=== PATIENT | male | born 1975 ===

== ENCOUNTER 2018-03-14 00:11 | Inpatient (IN) | payer OTHER ==
[2018-03-14 00:27] VITALS: BMI 30.9
[2018-03-14] MEDS ORDERED: Sodium Chloride 0.9% 1,000 ML IV STA (00:43)
--- NOTE | 2018-03-14 01:12 | ED PDOC ---
HPI: Abdomen Time Seen by Provider: 03/14/18 00:39 Chief Complaint (Nursing): Abdominal Pain Chief Complaint (Provider): Abdominal Pain History Per: Patient History/Exam Limitations: no limitations Additional Complaint(s): 42 y/o male with PMHx of kidney stones, diagnosed x24 hours ago with the same, presents to ED with left flank pain and testicular pain. Patient reports that he has been taking his medications as prescribed but has been experiencing worsening pain. Patient reports he spoke to Dr. Pena, urologist, who recommended he come to the ED for worsening pain. Past Medical History Reviewed: Historical Data, Nursing Documentation, Vital Signs Vital Signs: Last Vital Signs Temp 97.6 F 03/14/18 00:27 Pulse 82 03/14/18 00:27 Resp 18 03/14/18 00:27 BP 155/76 H 03/14/18 00:27 Pulse Ox 98 03/14/18 00:27 - Medical History PMH: Kidney Stones - Surgical History Surgical History: No Surg Hx - Family History Family History: States: Unknown Family Hx - Social History Current smoker - smoking cessation education provided: No Alcohol: None Drugs: Denies - Immunization History Hx Tetanus Toxoid Vaccination: Yes Hx Influenza Vaccination: No Hx Pneumococcal Vaccination: No - Home Medications Home Medications: Ambulatory Orders Medication Instructions Recorded RX: No Known Home Med 03/14/18 - Allergies Allergies/Adverse Reactions: Allergies Allergy/AdvReac Type Severity Reaction Status Date / Time No Known Allergies Allergy Verified 03/14/18 00:26 Review of Systems ROS Statement: Except As Marked, All Systems Reviewed And Found Negative Gastrointestinal: Positive for: Abdominal Pain (left flank) Genitourinary Male: Positive for: Scrotal Pain (testicular) Physical Exam - Reviewed Nursing Documentation Reviewed: Yes Vital Signs Reviewed: Yes - Physical Exam Appears: Positive for: Uncomfortable Head Exam: Positive for: ATRAUMATIC, NORMOCEPHALIC Skin: Positive for: Normal Color, Warm, Dry Eye Exam: Positive for: EOMI, Normal appearance, PERRL Neck: Positive for: Normal, Painless ROM, Supple Cardiovascular/Chest: Positive for: Regular Rate, Rhythm. Negative for: Murmur Respiratory: Positive for: Normal Breath Sounds. Negative for: Respiratory Distress Gastrointestinal/Abdominal: Positive for: Normal Exam, Soft. Negative for: Tenderness Extremity: Positive for: Normal ROM. Negative for: Pedal Edema, Deformity Neurologic/Psych: Positive for: Alert, Oriented. Negative for: Motor/Sensory Deficits - Laboratory Results Result Diagrams: 03/14/18 01:15 03/14/18 01:15 - ECG O2 Sat by Pulse Oximetry: 98 (RA) Pulse Ox Interpretation: Normal Medical Decision Making Medical Decision Making: Time: 00:42 Initial Impression: 42 y/o male with renal colics Initial Plan: * CT Abd Pelvis * CMP * ED urine * CBC w/ diff * IV Fluids * IV Toradol * Zofran * UA 02:40 CT Abd Pelvis FINDINGS: LUNG BASES: The lung bases appear clear. No pleural effusions are seen. LIVER: Unremarkable. GALLBLADDER AND BILE DUCTS: The gallbladder appears within normal limits. No radioopaque gallstones are seen. No biliary ductal dilatation is evident. PANCREAS: Unremarkable. SPLEEN: Unremarkable. ADRENAL GLANDS: Unremarkable. KIDNEYS, URETERS, AND BLADDER: Two 3 mm calculi are noted at the left UVJ producing mild hydroureteronephrosis. There is perinephric stranding. Punctate non-obstructing calculus is present in the lower pole of the right kidney. STOMACH AND BOWEL: Unremarkable appearance of the stomach and bowel. No evidence of bowel obstruction. No evidence suggesting enteritis or colitis. APPENDIX: No evidence of acute appendicitis on CT examination. PERITONEUM: No free fluid. No free air. LYMPH NODES: No lymphadenopathy is evident. REPRODUCTIVE: Unremarkable as visualized. VASCULATURE: No evidence of abdominal aortic aneurysm. BONES: No aggressive appearing osseous lesion. No acute osseous pathology evident. IMPRESSION: 1. Two 3 mm calculi are noted at the left UVJ producing mild hydroureteronephrosis. There is perinephric stranding. 2. Punctate non-obstructing calculus is present in the lower pole of the right kidney. 05:22 Discussed patient case with Dr. Pena, patient's urologist, who believes patient will benefit from surgical intervention given this is patient's second ER visit in less than 24 hours. Diagnosis is obstructive ureteral calculus with hydronephrosis. Case will be referred to Dr. Nuñez. ------ Scribe Attestation: Documented by Delbert Zhang acting as a scribe for Can Ross MD. Provider Scribe Attestation: All medical record entries made by the Scribe were at my direction and personally dictated by me. I have reviewed the chart and agree that the record accurately reflects my personal performance of the history, physical exam, medical decision making, and the department course for this patient. I have also personally directed, reviewed, and agree with the discharge instructions and disposition Disposition - Clinical Impression Clinical Impression: Renal colic on left side, Ureteral calculus, left, Hydronephrosis Discussed With : Veronica Pena (Dr Nuñez) - Disposition Disposition Time: 05:22 Condition: FAIR
[2018-03-14 01:19] LABS: BASO % 0.3 % (0.0-2.0); EOS % 0.1 % (0.0-4.0); HEMOGLOBIN 13.4 g/dL (12.0-18.0); LYMPH # 1.2 K/uL (1.0-4.3); LYMPH % 9.8 % (20.0-40.0); MEAN CELL VOLUME 90.2 fl (80.0-94.0); MEAN CORPUSCULAR HEMOGLOBIN 29.8 pg (27.0-31.0); MEAN CORPUSCULAR HGB CONC 33.1 g/dL (33.0-37.0); MEAN PLATELET VOLUME 9.7 fl (7.2-11.7); MONO # 1.1 K/uL (0.0-0.8); MONO % 9.2 % (0.0-10.0); NEUT # 9.5 K/uL (1.8-7.0); NEUT % 80.6 % (50.0-75.0); PLATELET COUNT 150 K/uL (130-400); WHITE BLOOD COUNT 11.7 K/uL (4.8-10.8)
[2018-03-14 01:27] LABS: ALB/GLOB RATIO 1.2 (1.0-2.1); ALBUMIN 3.9 g/dL (3.5-5.0); ALT/SGPT 38 U/L (21-72); AST/SGOT 31 U/L (17-59); BLOOD UREA NITROGEN 17 mg/dl (9-20); CALCIUM 9.5 mg/dL (8.4-10.2); GFR NON-AFRICAN AMERICAN 55
[2018-03-14 03:22] LABS: LYMPHOCYTE 6 % (20-50); MONOCYTE 4 % (0-10); NEUTROPHIL 89 % (42-75); REACTIVE LYMPHOCYTES 1 % (0-0); TOTAL CELLS COUNTED 100
[2018-03-14 03:23] LABS: PLATELET ESTIMATE NORMAL (NORMAL)
[2018-03-14 03:24] LABS: ANISOCYTOSIS SLIGHT; HYPOCHROMIC SLIGHT
[2018-03-14 04:33] LABS: SQUAMOUS EPITHIAL 2 /hpf (0-5); URINE BACTERIA RARE (<OCC); URINE BILIRUBIN NEGATIVE (NEGATIVE); URINE BLOOD MODERATE (NEGATIVE); URINE CLARITY SLIGHTY-CLOUDY (Clear); URINE COLOR STRAW (YELLOW); URINE GLUCOSE (UA) NEG (NEGATIVE); URINE LEUKOCYTE ESTERASE NEG Leu/uL (Negative); URINE PROTEIN NEGATIVE (NEGATIVE); URINE UROBILINOGEN 0.2-1.0 mg/dL (0.2-1.0)
[2018-03-14] MEDS ORDERED: Morphine 4 MG/ML VIAL IVP PRN (05:58)
--- NOTE | 2018-03-14 06:11 | CP.PCM.HP ---
History of Present Illness - History of Present Illness History of Present Illness: CC: L flank pain HPI: This is a 42 y/o male with MHx significant for nephrolithiasis in the past who comes in with L sided flank pain. Patient developed that pain about 1 day prior and was diagnosed with nephrolithiasis. His pain has worsened, and there is radiation to testicles. He also has some nausea. No f/c/d. He was Rx'ed medic ations previously and was taking them, however withouth improvement. Since his symptoms were worsening, he spoke with Dr. Pena, his urologist, and was advised to come in for the worsening pain. ROS: 14 systems reviewed, negative other than HPI MHx: Nephrolithiasis SHx: None Allergies: None Medications: Per med rec Family Hx: Per patient, possible kidney stones in family Social Hx: Lives with , no EtOH, no tobacco Present on Admission - Present on Admission Any Indicators Present on Admission: No Past Patient History - Infectious Disease Hx of Infectious Diseases: None - Past Social History Alcohol: None Drugs: Denies - RENAL Hx Kidney Stones: Yes - PSYCHIATRIC Hx Substance Use: No - SURGICAL HISTORY Hx Surgeries: No - ANESTHESIA Hx Anesthesia: No Meds Allergies/Adverse Reactions: Allergies Allergy/AdvReac Type Severity Reaction Status Date / Time No Known Allergies Allergy Verified 03/14/18 00:26 Physical Exam - Constitutional Additional comments: mild distress - Head Exam Head Exam: ATRAUMATIC, NORMOCEPHALIC - Eye Exam Eye Exam: EOMI, PERRL - ENT Exam ENT Exam: Mucous Membranes Moist - Neck Exam Neck exam: Positive for: Full Rom - Respiratory Exam Respiratory Exam: Clear to Auscultation Bilateral, NORMAL BREATHING PATTERN - Cardiovascular Exam Cardiovascular Exam: REGULAR RHYTHM, +S1, +S2 - GI/Abdominal Exam GI & Abdominal Exam: Normal Bowel Sounds, Soft, Tenderness Additional comments: lower abd tenderness on L, ?suprapubic tenderness - Extremities Exam Extremities exam: Positive for: full ROM, normal inspection - Back Exam Back exam: CVA tenderness (L) - Neurological Exam Neurological exam: Alert, CN II-XII Intact, Oriented x3 - Psychiatric Exam Psychiatric exam: Normal Affect, Normal Mood - Skin Skin Exam: Dry, Warm Results - Vital Signs Recent Vital Signs: Last Vital Signs Temp 97.6 F 03/14/18 00:27 Pulse 82 03/14/18 00:27 Resp 18 03/14/18 00:27 BP 155/76 H 03/14/18 00:27 Pulse Ox 98 03/14/18 05:33 - Labs Result Diagrams: 03/14/18 01:15 03/14/18 01:15 Labs: Laboratory Results - last 24 hr 03/14/18 03/14/18 03/14/18 01:15 01:15 04:00 WBC 11.7 H RBC 4.50 Hgb 13.4 Hct 40.6 MCV 90.2 MCH 29.8 MCHC 33.1 RDW 13.0 Plt Count 150 MPV 9.7 Neut % (Auto) 80.6 H Lymph % (Auto) 9.8 L [place] % (Auto) 9.2 Eos % (Auto) 0.1 Baso % (Auto) 0.3 Neut # (Auto) 9.5 H Lymph # (Auto) 1.2 [place] # (Auto) 1.1 H Eos # (Auto) 0.0 Baso # (Auto) 0.0 Neutrophils % (Manual) 89 H Lymphocytes % (Manual) 6 L Reactive Lymphs % 1 H Monocytes % (Manual) 4 Platelet Estimate Normal Hypochromasia (manual) Slight Anisocytosis (manual) Slight Sodium 135 Potassium 3.9 Chloride 101 Carbon Dioxide 24 Anion Gap 14 BUN 17 Creatinine 1.4 Est GFR ( Amer) > 60 Est GFR (Non-Af Amer) 55 Random Glucose 128 H Calcium 9.5 Total Bilirubin 0.6 AST 31 ALT 38 Alkaline Phosphatase 68 Total Protein 7.2 Albumin 3.9 Globulin 3.3 Albumin/Globulin Ratio 1.2 Urine Color Straw Urine Clarity Slighty-cloudy Urine pH 6.0 Ur Specific [place] 1.008 Urine Protein Negative Urine Glucose (UA) Neg Urine Ketones Negative Urine Blood Moderate Urine Nitrate Negative Urine Bilirubin Negative Urine Urobilinogen 0.2-1.0 Ur Leukocyte Esterase Neg Urine RBC (Auto) 33 H Urine Microscopic WBC 2 Ur Squamous Epith Cells 2 Urine Bacteria Rare - Imaging and Cardiology CT scan - abdomen Status: Image reviewed by me, Report reviewed by me Additional comment: IMPRESSION: 1. Two 3 mm calculi are noted at the left UVJ producing mild hydroureteronephrosis. There is perinephric stranding. 2. Punctate non-obstructing calculus is present in the lower pole of the right kidney. Assessment & Plan (1) Nephrolithiasis Assessment and Plan: 42 y/o male presenting with recurrent nephrolithiasis/hydroureter/renal colic. -NPO except medications/IVF for now in case of procedure -IV Zofran for n/v -Pain medications per scale -Flomax 0.8 mg daily -Consult [facility] -SCDs and ambulation for DVT PPx Status: Acute (2) Hydroureter Status: Acute (3) DVT prophylaxis Status: Acute
[2018-03-14] MEDS: Lactated Ringer's 1,000 ML IV SCH ×2 (06:28→14:07)
--- NOTE | 2018-03-14 10:14 | CT ---
Date of service: 03/14/2018 PROCEDURE: CT Abdomen and Pelvis without intravenous contrast HISTORY: renal colic COMPARISON: None. TECHNIQUE: Axial and reformatted coronal and sagittal CT images of the abdomen and pelvis were obtained without IV or oral contrast administration . Contrast dose: 0 Radiation dose: Total exam DLP = 528.72 mGy-cm. This CT exam was performed using one or more of the following dose reduction techniques: Automated exposure control, adjustment of the mA and/or kV according to patient size, and/or use of iterative reconstruction technique. FINDINGS: LOWER THORAX: Unremarkable. LIVER: Unremarkable. No gross lesion or ductal dilatation. GALLBLADDER AND BILE DUCTS: Unremarkable. PANCREAS: Unremarkable. No gross lesion or ductal dilatation. SPLEEN: Unremarkable. ADRENALS: Unremarkable. No mass. KIDNEYS AND URETERS: There is mild the left hydronephrosis and hydroureter up to 7 x 4 millimeter calculus at the left UV junction. There is linear shaped nonobstructing calculus at the lower pole of the right kidney measures 7.5 millimeter in the largest diameter. No evidence of right hydronephrosis. VASCULATURE: Unremarkable. No aortic aneurysm. No aortic atherosclerotic calcification or mural plaque present. BOWEL: Unremarkable. No obstruction. No gross mural thickening. APPENDIX: Unremarkable. Normal appendix. PERITONEUM: Unremarkable. No free fluid. No free air. LYMPH NODES: Unremarkable. No enlarged lymph nodes. BLADDER: Unremarkable. REPRODUCTIVE: The prostate is mildly enlarged contains coarse calcification BONES: No acute fracture. OTHER FINDINGS: None. IMPRESSION: Mild left hydronephrosis and hydroureter up 7 x 4 millimeter calculus at the left UV junction. 7.5 millimeter nonobstructing linear shaped calculus at the lower pole of the right kidney. Preliminary report was submitted by [facility].
[2018-03-14] MEDS ORDERED: cefTRIAXone (Rocephin) 1 gm Inj ONE (13:51)
[2018-03-14] MEDS ORDERED: Midazolam 2 MG/2 ML VIAL ONE (13:52)
[2018-03-14] MEDS ORDERED: Propofol 10 mg/ml Inj (20 ML) ONE (13:52)
[2018-03-14] MEDS ORDERED: Lidocaine 1% 5ml Abboject ONE (13:52)
[2018-03-14] MEDS ORDERED: Lidocaine 2% Jelly (5 ml) TOP ONE (13:53)
[2018-03-14] MEDS ORDERED: Lactated Ringer's 1,000 ML IV ONE ×2 (18:41→19:55)
[2018-03-14] MEDS ORDERED: [UNRECOGNIZED DRUG - OTHER] TP ONE (19:06)
[2018-03-14] MEDS ORDERED: BENZOIN TP ONE (19:06)
[2018-03-14] MEDS ORDERED: Liquid Adhesive TOP ONE ×2 (19:07→19:09)
[2018-03-14] MEDS ORDERED: HYDROmorphone 0.5 mg/0.5 ml ISec IVP PRN (19:18)
[2018-03-14] MEDS ORDERED: Lactated Ringer's 1,000 ML IV SCH (19:30)
--- NOTE | 2018-03-15 05:15 | OP ---
PROCEDURE DATE: 03/14/2018 PREOPERATIVE DIAGNOSIS: Left renal colic secondary to left ureteral obstructing stone. PROCEDURES PERFORMED: Cystoscopy, left ureteroscopy, stone basketing, and J-stent placement. DESCRIPTION OF PROCEDURE: Under general anesthesia, the patient was placed on the operating room table in the dorsal lithotomy position. The area of the groin was draped and prepped in a sterile manner. At this time, using a short urethroscope and under direct vision, I entered into the bladder. Over a floppy-tip guidewire, I advanced the ureteroscope up the left ureter beyond the area of the occlusive stone. At this time, I did a full to the level of the renal pelvis, did not see any other stones, so I came back and used a double-helical basket to engage the stone. It fractured into two, but I got the bigger portion now. The remaining portion was very small. I went back for a second look, and that is where I saw the very small fragment. I am sure it will come out on its own at this point, and under fluoroscopy, I placed 6-Frisian multi-length double J-stent into good position. Once this was done, then the patient was sent from the operating room in good condition. The stone was sent for specimen analysis. Veronica Pena MD
--- NOTE | 2018-03-15 05:21 | CON ---
DATE: 03/14/2018 This is a gentleman, 42 years old, who came in through the ER for acute left renal colic. He had been in a recent emergency room, the day before with the same condition. Apparently discharged from there, came to this ER, found to have an obstructing left ureteral calculus. On CAT scan, the patient was in moderate pain, so he is being admitted. We will give the patient a voiding trial. If he is not able to pass the stone by later this morning, then he will be taken to the operating room for physical removal of this stone. The patient is not febrile at this time. We will cover him with IV antibiotics until such time the stone is successfully out of him. Veronica Pena MD
[2018-03-15 06:30] LABS: BASO % 0.5 % (0.0-2.0); EOS % 0.7 % (0.0-4.0); HEMOGLOBIN 13.1 g/dL (12.0-18.0); LYMPH # 1.1 K/uL (1.0-4.3); LYMPH % 16.2 % (20.0-40.0); MEAN CORPUSCULAR HEMOGLOBIN 30.2 pg (27.0-31.0); MEAN CORPUSCULAR HGB CONC 33.6 g/dL (33.0-37.0); MEAN PLATELET VOLUME 10.3 fl (7.2-11.7); MONO % 14.6 % (0.0-10.0); NEUT # 4.6 K/uL (1.8-7.0); RBC 4.35 Mil/uL (4.40-5.90); RED CELL DISTRIBUTION WIDTH 12.9 % (11.5-14.5); WHITE BLOOD COUNT 6.7 K/uL (4.8-10.8)
[2018-03-15 06:35] LABS: BLOOD UREA NITROGEN 16 mg/dl (9-20); CALCIUM 8.7 mg/dL (8.4-10.2); GFR NON-AFRICAN AMERICAN > 60
[2018-03-15 08:00] VITALS: BP 126/69; PULSE 70; RESP 16; TEMP 99.3; O2SAT 99
--- NOTE | 2018-03-15 11:26 | RAD ---
Date of service: 03/14/2018 PROCEDURE: Intraoperative Fluoroscopy. HISTORY: FLUOROSCOPY FINDINGS: Fluoroscopic assistance was provided for retrograde study and left stent placement. Please refer to the operative report from [facility].
--- NOTE | 2018-03-15 11:59 | CP.PCM.DIS ---
Provider - Provider Date of Admission: 03/14/18 05:16 Attending physician: Yung Nuñez MD Consults: 03/14/18 07:00 Urology Consult Routine Comment: nephrolithiasis Consulting Provider: Veronica Shook Consulting Physician: Veronica Shook Reason for Consult: hydronephrosis Time Spent in preparation of Discharge (in minutes): 30 Diagnosis - Discharge Diagnosis (1) Nephrolithiasis Status: Acute Hospital Course - Lab Results Lab Results: Most Recent Lab Values WBC 6.7 K/uL (4.8-10.8) 03/15/18 05:10 RBC 4.35 Mil/uL (4.40-5.90) L 03/15/18 05:10 Hgb 13.1 g/dL (12.0-18.0) 03/15/18 05:10 Hct 39.1 % (35.0-51.0) 03/15/18 05:10 MCV 90.0 fl (80.0-94.0) 03/15/18 05:10 MCH 30.2 pg (27.0-31.0) 03/15/18 05:10 MCHC 33.6 g/dL (33.0-37.0) 03/15/18 05:10 RDW 12.9 % (11.5-14.5) 03/15/18 05:10 Plt Count 132 K/uL (130-400) 03/15/18 05:10 MPV 10.3 fl (7.2-11.7) 03/15/18 05:10 Neut % (Auto) 68.0 % (50.0-75.0) 03/15/18 05:10 Lymph % (Auto) 16.2 % (20.0-40.0) L 03/15/18 05:10 [place] % (Auto) 14.6 % (0.0-10.0) H 03/15/18 05:10 Eos % (Auto) 0.7 % (0.0-4.0) 03/15/18 05:10 Baso % (Auto) 0.5 % (0.0-2.0) 03/15/18 05:10 Neut # (Auto) 4.6 K/uL (1.8-7.0) 03/15/18 05:10 Lymph # (Auto) 1.1 K/uL (1.0-4.3) 03/15/18 05:10 [place] # (Auto) 1.0 K/uL (0.0-0.8) H 03/15/18 05:10 Eos # (Auto) 0.0 K/uL (0.0-0.7) 03/15/18 05:10 Baso # (Auto) 0.0 K/uL (0.0-0.2) 03/15/18 05:10 Neutrophils % (Manual) 89 % (42-75) H 03/14/18 01:15 Lymphocytes % (Manual) 6 % (20-50) L 03/14/18 01:15 Reactive Lymphs % 1 % (0-0) H 03/14/18 01:15 Monocytes % (Manual) 4 % (0-10) 03/14/18 01:15 Platelet Estimate Normal (NORMAL) 03/14/18 01:15 Hypochromasia (manual) Slight 03/14/18 01:15 Anisocytosis (manual) Slight 03/14/18 01:15 Sodium 139 mmol/l (132-148) 03/15/18 05:10 Potassium 3.6 MMOL/L (3.6-5.0) 03/15/18 05:10 Chloride 104 mmol/L (98-107) 03/15/18 05:10 Carbon Dioxide 27 mmol/L (22-30) 03/15/18 05:10 Anion Gap 12 (10-20) 03/15/18 05:10 BUN 16 mg/dl (9-20) 03/15/18 05:10 Creatinine 1.3 mg/dl (0.8-1.5) 03/15/18 05:10 Est GFR ( Amer) > 60 03/15/18 05:10 Est GFR (Non-Af Amer) > 60 03/15/18 05:10 Random Glucose 97 mg/dL (75-110) 03/15/18 05:10 Calcium 8.7 mg/dL (8.4-10.2) 03/15/18 05:10 Total Bilirubin 0.6 mg/dl (0.2-1.3) 03/14/18 01:15 AST 31 U/L (17-59) 03/14/18 01:15 ALT 38 U/L (21-72) 03/14/18 01:15 Alkaline Phosphatase 68 U/L (38-126) 03/14/18 01:15 Total Protein 7.2 G/DL (6.3-8.2) 03/14/18 01:15 Albumin 3.9 g/dL (3.5-5.0) 03/14/18 01:15 Globulin 3.3 gm/dL (2.2-3.9) 03/14/18 01:15 Albumin/Globulin Ratio 1.2 (1.0-2.1) 03/14/18 01:15 Urine Color Straw (YELLOW) 03/14/18 04:00 Urine Clarity Slighty-cloudy (Clear) 03/14/18 04:00 Urine pH 6.0 (5.0-8.0) 03/14/18 04:00 Ur Specific [place] 1.008 (1.003-1.030) 03/14/18 04:00 Urine Protein Negative mg/dL (NEGATIVE) 03/14/18 04:00 Urine Glucose (UA) Neg mg/dL (NEGATIVE) 03/14/18 04:00 Urine Ketones Negative mg/dL (NEGATIVE) 03/14/18 04:00 Urine Blood Moderate (NEGATIVE) 03/14/18 04:00 Urine Nitrate Negative (NEGATIVE) 03/14/18 04:00 Urine Bilirubin Negative (NEGATIVE) 03/14/18 04:00 Urine Urobilinogen 0.2-1.0 mg/dL (0.2-1.0) 03/14/18 04:00 Ur Leukocyte Esterase Neg Roc/uL (Negative) 03/14/18 04:00 Urine RBC (Auto) 33 /hpf (0-3) H 03/14/18 04:00 Urine Microscopic WBC 2 /hpf (0-5) 03/14/18 04:00 Ur Squamous Epith Cells 2 /hpf (0-5) 03/14/18 04:00 Urine Bacteria Rare (<OCC) 03/14/18 04:00 - Hospital Course Hospital Course: 42M pmhx of nephrolithiasis presented to ED with L sided flank pain for about a day prior. Diagnosed with nephrolithiasis. Had pain radiating to testicles. Previously treated with medications without improvement of pain. Dr. Shook urologist instructed to come into the ED if worsening pain after medication. Abd/pelvic CT was taken and showed 7 x 4 mm calculus in the left UV junction. Dr. Shook was consulted and he took the patient for surgery where he was able to extract a large portion of the stone and placed a J stent that he will remove as outpatient. Patient is stable for discharge from medicine and urology standpoint. Will be d/c with keflex 500 mg for 4 days as he was given abx in the OR. He will also have prescription for extra strength tylenol for pain. F/u with Dr. Shook in his office on Saturday 03/17 for removal of stent. Instructed to drink lemonade while at home for citric acid properties. - Date & Time of H&P Date of H&P: 03/15/18 Time of H&P: 11:57 Discharge Exam - Head Exam Head Exam: ATRAUMATIC, NORMOCEPHALIC - Eye Exam Eye Exam: EOMI, PERRL - ENT Exam ENT Exam: Mucous Membranes Moist - Respiratory Exam Respiratory Exam: Clear to PA & Lateral, NORMAL BREATHING PATTERN - Cardiovascular Exam Cardiovascular Exam: REGULAR RHYTHM, +S1, +S2 - GI/Abdominal Exam GI & Abdominal Exam: Normal Bowel Sounds, Soft. absent: Tenderness (improved) - Extremities Exam Extremities exam: normal capillary refill, pedal pulses present - Back Exam Back exam: CVA tenderness (L) (improved) - Neurological Exam Neurological exam: Alert, CN II-XII Intact, Oriented x3 - Psychiatric Exam Psychiatric exam: Normal Affect, Normal Mood - Skin Skin Exam: Dry, Normal Color, Warm Discharge Plan - Discharge Medications Prescriptions: Cephalexin [Keflex] 500 mg PO Q12 5 Days #10 capsule Ibuprofen [Motrin Tab] 600 mg PO Q8 PRN #20 tab PRN Reason: Pain, Moderate (4-7) - Follow Up Plan Condition: FAIR Disposition: HOME/ ROUTINE Instructions: Ureteral Stent (DC) Additional Instructions: CONRADO HERNÁNDEZ, thank you for letting us take care of you today. Your provider was Can Ross MD and you were treated for ABD PAIN. The emergency medical care you received today was directed at your acute symptoms. If you were prescribed any medication, please fill it and take as directed. It may take several days for your symptoms to resolve. Return to the Emergency Department if your symptoms worsen, do not improve, or if you have any other problems. Please contact your doctor or call one of the physicians/clinics you have been referred to that are listed on the Patient Visit Information form that is included in your discharge packet. Bring any paperwork you were given at discharge with you along with any medications you are taking to your follow up visit. Our treatment cannot replace ongoing medical care by a primary care provider outside of the emergency department. Thank you for allowing the [facility] team to be part of your care today. If you had an X-Ray or CT scan: A Radiologist will review the ED reading if any change in treatment is needed we will contact you. If you had a blood, urine, or wound culture: It will take several days for the results, if any change in treatment is needed we will contact you. If you had an STI test: It will take 48 hours for the results. Please call after 1 week if you have not heard back. FOLLOW UP WITH DR SHOOK IN 2 WEEKS- [phone] Referrals: Veronica Shook MD [Medical Doctor] - Pete Nguyen MD [Staff Provider] - Clinical Quality Measures - Date & Time of Discharge Summary Date of Discharge Summary: 03/15/18 Time of Discharge Summary: 11:59
== END 2018-03-15 13:14 | disposition home or self-care (01) | DRG 661 ==
LOC: H.ER 00:11 → H.ERHOLD 05:16 → H.PEDS 08:42
PROVIDERS: ADMIT Internal Medicine; ATTEND Internal Medicine
PROC: 0T778DZ Dilation of Left Ureter with Intraluminal Device, Via Natural or Artificial Opening Endoscopic (ICD-10-PCS; principal; 2018-03-14 18:30)
PROC: 0TC78ZZ Extirpation of Matter from Left Ureter, Via Natural or Artificial Opening Endoscopic (ICD-10-PCS; 2018-03-14 18:30)
DX: N13.2 Hydronephrosis with renal and ureteral calculous obstruction (principal); Z87.442 Personal history of urinary calculi

== ENCOUNTER 2018-04-22 14:54 | Emergency (ER) | payer OTHER ==
[2018-04-22 14:54] VITALS: BMI 30.9
[2018-04-22 15:03] VITALS: TEMP 98.1
[2018-04-22] MEDS ORDERED: Sodium Chloride 0.9% 1,000 ML IV STA (15:10)
--- NOTE | 2018-04-22 15:16 | ED PDOC ---
HPI: Abdomen Time Seen by Provider: 04/22/18 15:02 Chief Complaint (Nursing): Abdominal Pain Chief Complaint (Provider): right flank pain History Per: Patient History/Exam Limitations: no limitations Onset/Duration Of Symptoms: Days (today) Quality Of Discomfort: "Pain". denies: Burning Associated Symptoms: Urinary Symptoms (blood in urine). denies: Fever, Chills, Nausea, Vomiting, Diarrhea, Chest Pain, Constipation Additional Complaint(s): Mando Frazier is a 42 year old male, with a past medical history of kidney stones, who presents to the emergency department complaining of right flank pain associated with blood in urine onset today. Patient states pain radiates down the groin. He reports having similar symptoms in March, he was diagnosed with a left kidney stone and had surgery done by Dr. Pena, urologist. Patient state s he spoke with Dr. Pena today who advised him to come to the ER. He denies any fever, chills, nausea, vomit, diarrhea, chest pain, shortness of breath, numbness or tingling, weakness, dysuria or other medical complaints. PMD: None provided. Past Medical History Reviewed: Historical Data, Nursing Documentation, Vital Signs Vital Signs: Last Vital Signs Temp 98.1 F 04/22/18 15:01 Pulse 79 04/22/18 15:01 Resp 20 04/22/18 15:01 BP 147/85 04/22/18 15:01 Pulse Ox 98 04/22/18 15:01 - Medical History PMH: Kidney Stones, Chronic Kidney Disease - Surgical History Other surgeries: left kidney surgery - Family History Family History: States: Unknown Family Hx - Social History Current smoker - smoking cessation education provided: No Alcohol: None Drugs: Denies - Immunization History Hx Tetanus Toxoid Vaccination: Yes Hx Influenza Vaccination: No Hx Pneumococcal Vaccination: No - Home Medications Home Medications: Ambulatory Orders Medication Instructions Recorded Cephalexin [Keflex] 500 mg PO Q12 5 Days #10 capsule 03/15/18 Ibuprofen [Motrin Tab] 600 mg PO Q8 PRN #20 tab 03/15/18 Ciprofloxacin HCl [Cipro] 500 mg PO BID 7 Days tab 04/22/18 Ibuprofen [Motrin] 600 mg PO TID 7 Days tab 04/22/18 Tamsulosin [Flomax] 0.4 mg PO DAILY PRN #6 cap 04/22/18 - Allergies Allergies/Adverse Reactions: Allergies Allergy/AdvReac Type Severity Reaction Status Date / Time No Known Allergies Allergy Verified 04/22/18 15:01 Review of Systems ROS Statement: Except As Marked, All Systems Reviewed And Found Negative Constitutional: Negative for: Fever, Chills Cardiovascular: Negative for: Chest Pain Respiratory: Negative for: Shortness of Breath Gastrointestinal: Positive for: Other (right flank pain). Negative for: Nausea, Vomiting, Diarrhea Genitourinary Male: Positive for: Hematuria, Other (groin pain). Negative for: Dysuria Neurological: Negative for: Weakness, Numbness (tingling) Physical Exam - Reviewed Nursing Documentation Reviewed: Yes Vital Signs Reviewed: Yes - Physical Exam Appears: Positive for: No Acute Distress Head Exam: Positive for: ATRAUMATIC, NORMAL INSPECTION, NORMOCEPHALIC Skin: Positive for: Normal Color, Warm, Dry Eye Exam: Positive for: Normal appearance, EOMI, PERRL Neck: Positive for: Normal, Painless ROM, Supple Cardiovascular/Chest: Positive for: Regular Rate, Rhythm. Negative for: Murmur Respiratory: Positive for: Normal Breath Sounds. Negative for: Respiratory Distress Gastrointestinal/Abdominal: Positive for: Soft, Tenderness (RLQ) Back: Positive for: Normal Inspection. Negative for: L CVA Tenderness, R CVA Tenderness, Vertebral Tenderness Extremity: Positive for: Normal ROM (upper and lower extremities). Negative for: Deformity, Swelling Neurologic/Psych: Positive for: Alert, Oriented. Negative for: Motor/Sensory Deficits - Laboratory Results Result Diagrams: 04/22/18 16:00 04/22/18 16:00 Lab Results: no acute Urine dip results: Positive for: Leukocyte Esterase (trace), Blood - ECG O2 Sat by Pulse Oximetry: 98 (RA) Pulse Ox Interpretation: Normal - CT Scan/US ct Other Rad Studies (CT/US): Read By Radiologist Other Rad Interpretation: 4mm R proximal ureteral - Progress ED Course And Treament: 1824: Spoke with Dr. Pena. Pt. well known to him. States ok to dc pt. if pt. comfortable. Pt. states he is comfortable. No pain. Will fu with Dr. Pena. AAOx3. Tolerated PO. Medical Decision Making Medical Decision Making: Time: 15:02 Initial Impression: Kidney stones, flank pain Initial Plan: --Abd & Pelvis w/o PO or IV Contrast --CMP --Urine dip --CBC w/ differential --Toradol 15 mg IVP --NaCl 1,000 ml IV 1,000 mls/hr --Zofran Inj 4 mg IV --Reevaluation 16:42 CT Abdomen/pelvis FINDINGS: LOWER THORAX: Cardiomegaly. No focal consolidation or pleural effusion. LIVER: Unremarkable. No gross lesion or ductal dilatation. GALLBLADDER AND BILE DUCTS: Unremarkable. PANCREAS: Unremarkable. No gross lesion or ductal dilatation. SPLEEN: Unremarkable. ADRENALS: Unremarkable. No mass. KIDNEYS AND URETERS: 4 mm obstructive right proximal ureteral calculus causing mild hydronephrosis. No solid mass. VASCULATURE: Unremarkable. No aortic aneurysm. No aortic atherosclerotic calcification or mural plaque present. BOWEL: Unremarkable. No obstruction. No gross mural thickening. APPENDIX: Unremarkable. Normal appendix. PERITONEUM: Small bilateral fat containing inguinal hernias. No free fluid. No free air. LYMPH NODES: Unremarkable. No enlarged lymph nodes. BLADDER: Unremarkable. REPRODUCTIVE: Unremarkable. BONES: No acute fracture. OTHER FINDINGS: None. IMPRESSION: Obstructive 4 mm proximal right ureteral calculus causing mild hydronephrosis. Scribe Attestation: Documented by Vladimir Bonilla, acting as a scribe for Casper Moscoso MD Provider Scribe Attestation: All medical record entries made by the Scribe were at my direction and personally dictated by me. I have reviewed the chart and agree that the record accurately reflects my personal performance of the history, physical exam, medical decision making, and the department course for this patient. I have also personally directed, reviewed, and agree with the discharge instructions and disposition. Disposition - Clinical Impression Clinical Impression: UTI (urinary tract infection), Ureteral calculus - Patient ED Disposition Is Patient to be Admitted: No Counseled Patient/Family Regarding: Studies Performed, Diagnosis, Need For Followup, Rx Given - Disposition Referrals: Veronica Pena MD [Medical Doctor] - 04/24/18 Disposition: Routine/Home Disposition Time: 18:35 Condition: STABLE Additional Instructions: Return if not better in 3 days. Prescriptions: Ciprofloxacin HCl [Cipro] 500 mg PO BID 7 Days tab Ibuprofen [Motrin] 600 mg PO TID 7 Days tab Tamsulosin [Flomax] 0.4 mg PO DAILY PRN #6 cap PRN Reason: Pain Instructions: Urinary Tract Infection, Adult (DC), How to Strain Your Urine, Kidney Stones in Adults Print Language: KINYARWANDA
[2018-04-22 16:04] LABS: BASO # 0.1 K/uL (0.0-0.2); BASO % 0.9 % (0.0-2.0); EOS # 0.1 K/uL (0.0-0.7); EOS % 1.3 % (0.0-4.0); LYMPH # 1.2 K/uL (1.0-4.3); LYMPH % 22.4 % (20.0-40.0); MEAN CELL VOLUME 92.3 fl (80.0-94.0); MEAN CORPUSCULAR HGB CONC 32.5 g/dL (33.0-37.0); MEAN PLATELET VOLUME 9.5 fl (7.2-11.7); MONO # 0.4 K/uL (0.0-0.8); MONO % 7.9 % (0.0-10.0); NEUT # 3.7 K/uL (1.8-7.0); NEUT % 67.5 % (50.0-75.0); NRBC % 0.1 % (0.0-0.0); RBC 4.66 Mil/uL (4.40-5.90); RED CELL DISTRIBUTION WIDTH 13.1 % (11.5-14.5); WHITE BLOOD COUNT 5.5 K/uL (4.8-10.8)
[2018-04-22 16:21] LABS: ALB/GLOB RATIO 1.2 (1.0-2.1); ALBUMIN 4.1 g/dL (3.5-5.0); ALT/SGPT 35 U/L (21-72); AST/SGOT 30 U/L (17-59); BLOOD UREA NITROGEN 15 mg/dl (9-20); GFR NON-AFRICAN AMERICAN > 60
--- NOTE | 2018-04-22 16:45 | CT ---
Date of service: 04/22/2018 PROCEDURE: CT Abdomen and Pelvis without intravenous contrast HISTORY: R/O stone COMPARISON: CT scan of the abdomen pelvis dated 03/14/2018 TECHNIQUE: Contiguous images were obtained from the domes of the diaphragms to the upper thighs without the administration of intravenous contrast. Oral contrast was not administered. Radiation dose: Total exam DLP = 497.01 mGy-cm. This CT exam was performed using one or more of the following dose reduction techniques: Automated exposure control, adjustment of the mA and/or kV according to patient size, and/or use of iterative reconstruction technique. FINDINGS: LOWER THORAX: Cardiomegaly. No focal consolidation or pleural effusion. LIVER: Unremarkable. No gross lesion or ductal dilatation. GALLBLADDER AND BILE DUCTS: Unremarkable. PANCREAS: Unremarkable. No gross lesion or ductal dilatation. SPLEEN: Unremarkable. ADRENALS: Unremarkable. No mass. KIDNEYS AND URETERS: 4 mm obstructive right proximal ureteral calculus causing mild hydronephrosis. No solid mass. VASCULATURE: Unremarkable. No aortic aneurysm. No aortic atherosclerotic calcification or mural plaque present. BOWEL: Unremarkable. No obstruction. No gross mural thickening. APPENDIX: Unremarkable. Normal appendix. PERITONEUM: Small bilateral fat containing inguinal hernias. No free fluid. No free air. LYMPH NODES: Unremarkable. No enlarged lymph nodes. BLADDER: Unremarkable. REPRODUCTIVE: Unremarkable. BONES: No acute fracture. OTHER FINDINGS: None. IMPRESSION: Obstructive 4 mm proximal right ureteral calculus causing mild hydronephrosis.
[2018-04-22 18:34] VITALS: BP 123/75; PULSE 60; RESP 18
[2018-04-22 18:35] VITALS: O2SAT 98
== END 2018-04-22 18:48 | disposition home or self-care (01) ==
LOC: H.ER 14:54
DX: N39.0 Urinary tract infection, site not specified (principal); N34.1 Nonspecific urethritis
CPT/HCPCS: 74176; 80053; 85025; 96361; 96374; 96375; 99283; J1885; J2405; J7030